=== PATIENT | male | born 1955 | race Caucasian/White ===

== ENCOUNTER 2019-01-03 11:01 | Inpatient (IN) | payer OTHER ==
[~2019-01-03] VITALS: Ht 182.9 cm; Wt 104.3 kg
[2019-01-03 11:15] VITALS: BP 142/71
[2019-01-03 14:07] VITALS: BP 123/58
--- NOTE | 2019-01-03 17:41 | NUR ---
PT ARRIVED TO UNIT FROM [facility] AT APPROX 1100 PER EMS. PT ALERT AND ORIENTED, UP AD KOJO. VSS, SB ON MONITOR WITH BBB. PHYSICIAN NOTIFIED OF ARRIVAL. PT SEEN BY CARDIOLOGY. CARDIAC CATH TO BE PERFORMED TODAY. NO INTERVENTION. 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 POST CATH VITALS STARTED. PT DENIES CHEST PAIN THROUGHOUT SHIFT. NO C/O SOB. O2 SATS WNL ON ROOM AIR. PT FAMILY IN ROOM WITH PT. ASSESSMENTS CHARTED. ADMISSION COMPLETE. TELEMETRY SHEET DICUSSED WITH PT AND SIGNED. PT COMMUNICATES UNDERSTANDING. DENIES NEEDS AT THIS TIME. GROIN SITE REMAINS CDI. CONTINUING TO MONITOR AND FOLLOW POC.
[2019-01-03 18:34] VITALS: BP 123/58
[2019-01-03 20:45] VITALS: BP 133/84
[2019-01-03] MEDS ORDERED: TELMISARTAN80 MG PO (21:14)
[2019-01-03] MEDS ORDERED: CLONIDINE0.1 PO (21:17)
[2019-01-03] MEDS ORDERED: XANAX 0.5 MG0.5 MG PO (21:18)
[2019-01-03] MEDS ORDERED: NORVASC5 MG PO (21:19)
[2019-01-03] MEDS ORDERED: CENTRUM SILVER1 EAC2 PO (21:21)
[2019-01-03] MEDS ORDERED: ASPIR 8181 MG PO (21:21)
[2019-01-03] MEDS ORDERED: CHOLEST OFF450 MG PO (21:22)
[2019-01-03] MEDS ORDERED: CHOLEST OFF PL450 MG PO (21:23)
[2019-01-03] MEDS ORDERED: GARLIC OIL1000 MG PO (21:24)
[2019-01-03] MEDS ORDERED: FISH OIL 1,001000 M2 PO (21:24)
[2019-01-04 00:10] VITALS: BP 126/66
--- NOTE | 2019-01-04 01:03 | NUR ---
ASSESSMENT CHARTED, MEDS CHARTED GIVEN. PATIENT WENT TO WAIST FITTER DURING DAY, NO INTERVENTIONS. PATIENT OFF BED REST PRIOR TO SHIFT STARTING. PATIENT'S GROIN SITE IS CLEAN, DRY, AND SOFT. PATIENT IS UP AT KOJO IN ROOM. GROIN SITE IS CHECKED FREQUENTLY WITH NO CHANGE. DENIES PAIN. PLAN OF CARE IS TO GO HOME IN MORNING.
[2019-01-04 04:45] VITALS: BP 114/60
[2019-01-04 06:08] LABS: CHOLESTEROL 216 mg/dL (<200); HDL CHOLESTEROL 39 mg/dL (>40); LDL CHOLESTEROL 146 mg/dL (<100); TC:HDL 5.5 Ratio (Not establshd); TRIGLYCERIDE 156 mg/dL (<150); VLDL 31 mg/dL (<40)
[2019-01-04 06:10] LABS: CALCIUM 8.2 mg/dL (8.5-10.1); CREATININE 0.9 mg/dL (0.7-1.3); MAGNESIUM 2.1 mg/dL (1.8-2.4); POTASSIUM 3.8 mmol/L (3.5-5.1); SERUM ASSESSMENT Clear
[2019-01-04] MEDS ORDERED: CRESTOR10 MG PO (10:40)
[2019-01-04 10:47] VITALS: BP 124/83
--- NOTE | 2019-01-04 11:10 | NUR ---
ASSUMED CARE OF PT FOR DAY SHIFT, A&0X4, NO NEEDS AT THIS TIME. SPOUSE AT BEDSIDE, NOTED CAMPBELL HRHYTHM, HAS BEEN NORM SINCE HERE, SPOUSE STATES IT'S USUALLY IN THE 90S. PT TALKS ABOUT HAVING A RINGING IN HIS EARS, CHRONIC, YET IT PRECEDES THE MINIMAL FUNNY FEELING IN HIS CHEST. RATED 2/ SPOKE W/BEHAVIOR THERAPIST TO GIVE UPDATE. D/C IMMINENT. PT HAS IV AND TELE REMOVED AND IS AWAITING W/C AND STAFF TO ACCOMPANY HIS OUT TO [facility].
--- NOTE | 2019-01-05 13:19 | EKG ---
[address] [place] [address] ELECTROCARDIOGRAM REPORT Name: SARAH BETH HITCHCOCK Room #: 209-P [facility] IN M.R.#: [id number] Admission: 01/03/19 Attend Phys: Joan Restrepo Discharge: 01/04/19 Date of : 57 Report #: [id number] THIS REPORT FOR: //name// [facility] Test Date: 2019-01-03 Test Time: 12:47:00 Pat Name: SARAH BETH HITCHCOCK Department: Room: 209 P Gender: M Manganese Wheeler: Gini LIU : 1955 Requested By: China Jackson Order Number: [id number] MD: Pedro Espinoza Measurements Intervals [place] Rate: 48 P: 44 SD: 182 QRS: 5 QRSD: 181 T: 223 QT: 551 QTc: 493 Interpretive Statements Sinus bradycardia Left bundle branch block No previous ECG available for comparison Electronically Signed On 01-05-2019 13:19:36 CDT by Pedro Espinoza [email or web address] <ELECTRONICALLY SIGNED> By: Pedro Espinoza MD, [facility] 01/05/19 1319 1247 1247 Pedro Espinoza MD, FACC /EPI
--- NOTE | 2019-01-06 11:04 | CATHLAB ---
[facility] [address] [place] [place] [address] INVASIVE PROCEDURE REPORT Name: SARAH BETH HITCHCOCK Room #: 209-P [facility] IN M.R.#: [id number] Admission: 01/03/19 Attend Phys: Joan Celestin Discharge: 01/04/19 Date of : 57 Report #: [id number] THIS REPORT FOR: //name// APPROVED REPORT Study performed: 01/03/2019 14:12:59 Patient Details Patient Status: In-Patient Room #: 209 The patient is a 63 year-old male Event Personnel Larry Villanueva Or Director, Jade Strange RN, Shanice Estrada RN RN, Ani Felix RTR, NURSING TECHN Monitor, Blade Roldan RTR Scrub Procedures Performed Art Access - R femoral artery* Left Heart Cath w/or w/o Coronaries [id number] [facility] [address] Initial Mod Sed Same Phys/QHP 5y [id number], supervision of conscious sedation Indication Chest pain Procedure Narrative The Right Groin^ was infiltrated with 1% Lidocaine subcutaneous anesthesia. A PINNACLE 4FR Sheath #[id number] sheath was inserted into the RFA^. Coronary angiography was performed using coronary diagnostic catheters. The right coronary system was accessed and visualized with a JR4 catheter. The left coronary system was accessed and visualized with a JL4 catheter. Left ventricular/Aortic Valve gradient assessed via catheter pullback. Hemostasis was obtained with manual pressure following sheath removal without any complications. There was no hematoma. Intraoperative Conscious Sedation Sedation start time: 14:29 Case end Time: 14:51 Versed 2 mg Fluoro Time: 3.90 minutes Dose: DAP 7364.00 cGycm2 1302 mGy Contrast Type and Amount: Omnipaque 50 ml Coronary Angiography [facility] [email or web address] [place] [address] INVASIVE PROCEDURE REPORT Name: SARAH BETH HITCHCOCK Room #: 209-P [facility] IN ..#: [id number] Admission: 01/03/19 Attend Phys: Joan Celestin Discharge: 01/04/19 Date of : 57 Report #: [id number] The patient's coronary anatomy is right dominant. Diagnostic Cath Left Main Left main is of normal origin moderate caliber bifurcates left anterior descending left circumflex free of high-grade disease LAD Moderate caliber type II vessel which courses in the anterior interventricular sulcus. It tapers rapidly so that the distal third appears to be a string-like vessel prior to terminating at the left ventricular apex. In its course gives rise to septal and diagonal branches without high-grade lesions noted although there are luminal irregularities present Diagonal 1 Small-caliber vessel without significant high-grade lesion Diagonal 2 Moderate caliber vessel coursing along the anterolateral aspect of the left ventricle and extending towards the apex. Has luminal irregularities but no high-grade lesions noted Circumflex Moderate to large caliber vessel which courses in the AV groove. In the lateral aspect there is a branch which arises in her demonstrates 2 marginal wall branches and a posterior wall branches all of which are free of high-grade disease. Prior to this bifurcation the circumflex continues as a small history of vessel and the posterior atrial OM1 Moderate caliber vessel coursing on the lateral aspect of the heart without significant high-grade lesions OM2 Small to moderate caliber vessel that is mild irregularity proximally of less than 30%. It then continues along the lateral aspect of the ventricle without significant high-grade stenosis OM3 Walk a vessel free of high-grade disease coursing along the lateral inferior wall Right Coronary Moderate to large caliber vessel of normal origin giving rise to small are a and RV branches in its course and continues to the crux of the heart were small posterior descending artery originates. The distal circulation is a small caliber vessel terminating as a posterior wall branches all of which are free of high-grade disease R PDA Moderate caliber vessel coursing posteriorly to the apex terminates small-caliber vessel. No high-grade lesions are noted Left Ventriculography Left Ventriculography was not performed. Hemodynamics [facility] [address] [place] [address] INVASIVE PROCEDURE REPORT Name: SARAH BETH HITCHCOCK Room #: 209-P DIS IN M.R.#: [id number] Admission: 01/03/19 Attend Phys: Joan Celestin Discharge: 01/04/19 Date of : 57 Report #: [id number] The aortic pressure is 128/66 mmHg with a mean of 94 mmHg. The left ventricular pressure is 139/8 mmHg with a mean of mmHg. The left ventricular end diastolic pressure is 19 mmHg. Conclusion 1. Essentially normal coronary arteries 2. Normal hemodynamics Recommendations Cardiac Risk Reduction Program <ELECTRONICALLY SIGNED> By: Larry Villanueva MD 01/06/19 1103 1103 1103 Larry Villanueva MD /INF
[2019-01-06 13:46] LABS: GLYCOHEMOGLOBIN (HGB A1C) 5.5 % (4.8-5.6)
== END 2019-01-04 11:17 | disposition home or self-care (01) | DRG 287 ==
LOC: 2N 11:14
PROVIDERS: Nurse Practitioner; ADMIT Hospitalist
PROC: B2111ZZ Fluoroscopy of Multiple Coronary Arteries using Low Osmolar Contrast (ICD-10-PCS; principal; 2019-01-04)
PROC: 3E0234Z Introduction of Serum, Toxoid and Vaccine into Muscle, Percutaneous Approach (ICD-10-PCS; principal; 2019-01-04)
PROC: 4A023N7 Measurement of Cardiac Sampling and Pressure, Left Heart, Percutaneous Approach (ICD-10-PCS; principal; 2019-01-04)
DX: I25.10 Atherosclerotic heart disease of native coronary artery without angina pectoris (principal); I10 Essential (primary) hypertension; F41.9 Anxiety disorder, unspecified; R00.1 Bradycardia, unspecified; E78.5 Hyperlipidemia, unspecified; I44.7 Left bundle-branch block, unspecified; Z87.442 Personal history of urinary calculi; Z79.899 Other long term (current) drug therapy; Z79.82 Long term (current) use of aspirin; Z23 Encounter for immunization
CPT/HCPCS: 10797